=== PATIENT | female | born 1995 | race African-American/Black ===

== ENCOUNTER 2016-09-08 15:44 | Emergency (ER) | payer OTHER ==
[~2016-09-08] VITALS: Ht 170.2 cm; Wt 72.6 kg
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
[2016-09-08] MEDS ORDERED: FENTANYL PF 100 MCG/2 ML VIAL. IV ONE (16:15)
[2016-09-08] MEDS ORDERED: LIDOCAINE/EPI/TETRACAINE TOPICAL GEL 3 ML. TP ONE (16:15)
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
[2016-09-08 17:17] VITALS: BP 110/61
== END 2016-09-08 17:26 | disposition home or self-care (01) ==
LOC: ER 15:44
DX: S06.0X0A Concussion without loss of consciousness, initial encounter (principal); S01.01XA Laceration without foreign body of scalp, initial encounter; S50.02XA Contusion of left elbow, initial encounter; Y08.89XA Assault by other specified means, initial encounter; Y93.89 Activity, other specified; Y92.89 Other specified places as the place of occurrence of the external cause; Y99.8 Other external cause status
CPT/HCPCS: 70450; 73080; 96374; 99284; J3010

== ENCOUNTER 2017-03-25 09:57 | Observation (INO) | payer OTHER ==
[2017-03-25 13:35] LABS: BASO % 0 % (0-3); EOS % 2 % (0-3); HEMATOCRIT 28.3 % (36.0-47.0); HEMOGLOBIN 9.4 g/dL (12.0-15.5); LYMPH # 1.7 x10^3/uL (1.0-4.8); LYMPH % 17 % (24-48); MEAN CORPUSCULAR HEMOGLOBIN 26 pg (25-35); MEAN CORPUSCULAR HGB CONC 33 g/dL (31-37); MEAN CORPUSCULAR VOLUME 79 fL (79-100); MONO % 12 % (0-9); NEUT % 69 % (31-73); PLATELET COUNT 252 x10^3/uL (140-400); RED BLOOD COUNT 3.57 x10^6/uL (3.50-5.40); RED CELL DISTRIBUTION WIDTH 15.7 % (11.5-14.5); WHITE BLOOD COUNT 9.6 x10^3/uL (4.0-11.0)
--- NOTE | 2017-03-25 13:49 | RAD ---
Obstetrical ultrasound-limited, 03/25/2017: History: No care, unknown dates There is a single intrauterine fetus in a cephalic orientation. The biparietal diameter measures 8.2 cm compatible with a gestational age of 32-33 weeks. The femur length measurement suggests a gestational age of 31-32 weeks. The average gestational age based on all of the measurements is 32 weeks and 4 days yielding a sonographic EDC of 05/16/2017. Normal activity and heart motion were seen. The heart rate was 149 bpm. The weight was estimated at 4 pounds and 4 ounces +/- 10 ounces. A full survey was not attempted at this time. The placenta lies posteriorly extending into the fundal region. There is no evidence of a placenta previa. A normal amount of an amniotic fluid is present with the NICOLASA calculated at 15.7. The cervix was not clearly delineated due to the overlying head. It measures at least 3 cm in length. IMPRESSION: Single viable intrauterine fetus of 32-33 weeks gestational age as described above.
[2017-03-25 15:22] LABS: BARBITURATES NEG (NEG); BENZODIAZEPINES NEG (NEG); CANNABINOIDS NEG (NEG); COCAINE NEG (NEG); METHADONE NEG (NEG); OPIATES NEG (NEG); PHENCYCLIDINE NEG (NEG)
[2017-03-26 01:15] LABS: HIV ANTIBODY Non Reactive (Non Reactive)
[2017-03-26 06:16] LABS: RPR REFLEX Non Reactive (Non Reactive)
== END 2017-03-25 14:40 | disposition home or self-care (01) ==
LOC: 3 SO LND 09:57
PROVIDERS: ADMIT Obstetrics & Gynecology; ATTEND Obstetrics & Gynecology
DX: O62.9 Abnormality of forces of labor, unspecified (principal); Z3A.33 33 weeks gestation of pregnancy
CPT/HCPCS: 36415; 76805; 80307; 85025; 86593; 86701; 86702; 86703; 86762; 86850; 86900; 86901; 87340; 87341; 87535; G0378; G0379; G0479

== ENCOUNTER 2019-09-24 15:55 | Inpatient (IN) | payer MEDICARE, MEDICAID ==
[~2019-09-24] VITALS: Ht 170.2 cm; Wt 79.5 kg
[2019-09-24 17:41] LABS: BILIRUBIN,URINE NEGATIVE (NEG); CLARITY,URINE CLEAR; COLOR,URINE YELLOW; NITRITE,URINE NEGATIVE (NEG); PH,URINE 6.5 (<5.0-8.0); PROTEIN,URINE NEGATIVE (NEG-TRACE); UROBILINOGEN,URINE 0.2 mg/dL (0.2 mg/dL)
[2019-09-24 17:51] LABS: BACTERIA,URINE FEW /HPF (0-FEW); RBC,URINE 0 /HPF (0-2); SQUAMOUS EPITHELIAL CELL,UR MOD /LPF; WBC,URINE OCC /HPF (0-4)
[2019-09-24] MEDS ORDERED: cefTRIAXone IM 250 MG VIAL IM ONE (18:00)
[2019-09-24] MEDS ORDERED: AZITHROMYCIN 250 MG TABLET. PO ONE (18:00)
--- NOTE | 2019-09-24 18:25 | RAD ---
Complete pelvic ultrasound HISTORY: Right adnexal tenderness, right pelvic pain. FINDINGS: Anteverted uterus measures 7.8 x 5.4 x 4.2 cm. Endometrium thickness 0.8 cm. No uterine mass documented. There is mild volume of anechoic free fluid at the cul-de-sac and right adnexa. Left ovary measures 3.8 x 2.3 x 1.6 cm with 2 subcentimeter follicles, and normal intact left ovarian blood flow, and a left adnexal mass evident. There is no normal right ovary documented, at the right adnexa there is a 4 cm cystic structure sonographically fluid anterior of which is echogenic material without significant vascularity evident, some of this surrounds a somewhat anechoic tubular structure on image 14 raising the possibility of hydrosalpinx or pyosalpinx. IMPRESSION: No normal right ovary documented. There is a mild volume of free fluid at the cul-de-sac and right adnexa. No normal right ovary evident, there is a right adnexal poorly defined solid and cystic mass a portion of which has a tubular component which could be the patient's dilated fallopian tube. This could indicate salpingitis with hydrosalpinx/pyosalpinx, although replacement of the right ovary due to a solid and cystic ovarian neoplasm is also a consideration. Nonvisualization of the right ovary due to migration of the ovary from torsion is not excluded. No well-formed drainable abscess is documented. Uterus and left ovary are normal. Electronically signed by: Dimas Banks MD (09/24/2019 6:22 PM) [id number]
--- NOTE | 2019-09-24 18:39 | PHYS DOC ---
Past Medical History Past Medical History: Other Additional Past Medical Histor: eczema (ANGELINA LORENZO APRN) Past Surgical History: Other Additional Past Surgical Histo: hernia (ANGELINA LORENZO APRN) Smoking Status: Current Every Day Smoker Alcohol Use: None Drug Use: None (ANGELINA LORENZO APRN) Attending Signature I have participated in the care of this patient and I have reviewed and agree with all pertinent clinical information above including history, exam, and recommendations. (AMERICA KOHLI MD) Adult General Chief Complaint Chief Complaint: PELVIC PAIN HPI HPI Patient is a 23 year old AA female who presents to the emergency department with complaints of pelvic pain for the last week and irregular thick whitish- yellow vaginal discharge for the last 3 days. Patient denies any foul-smelling vaginal discharge. She denies any nausea, vomiting, diarrhea, abdominal pain, dysuria, hematuria, back pain, or increased urinary frequency. Patient states that her last menstrual cycle was sometime around 2 months ago. She states that she was but she had a miscarriage and cannot remember when that happened. Patient states she is not taking any control or using condoms to prevent . She currently rates her discomfort a 7 out of 10 on the pain scale, (ANGELINA LORENZO APRN) Review of Systems Review of Systems Complete ROS is negative unless otherwise noted in HPI. (ANGELINA LORENZO APRN) Current Medications Current Medications Current Medications Medications (Trade) Dose Ordered Sig/Faviola Start Time Stop Time Status Last Admin Dose Admin Azithromycin (Zithromax) 1,000 mg 1X ONCE 09/24/19 18:00 09/24/19 18:01 DC 09/24/19 18:29 1,000 MG Ceftriaxone Sodium (Rocephin Im) 250 mg 1X ONCE 09/24/19 18:00 09/24/19 18:01 DC 09/24/19 18:30 250 MG Gentamicin Sulfate 310 mg/ Sodium Chloride 107.75 ml @ 107.75 mls/hr Q24H 09/24/19 19:15 09/25/19 19:59 107.75 MLS/HR (AMERICA KOHLI MD) Allergies Allergies Allergies Coded Allergies Type Severity Reaction Last Updated Verified No Known Drug Allergies 04/09/14 No (AMERICA KOHLI MD) Physical Exam Physical Exam See Above Constitutional: Well developed, well nourished, no acute distress, non-toxic appearance. HENT: Normocephalic, atraumatic, bilateral external ears normal, nose normal. Eyes: PERRLA, EOMI, conjunctiva normal, no discharge. Neck: Normal range of motion, supple, no stridor. Cardiovascular: Heart rate regular rhythm Lungs & Thorax: Respirations even and unlabored, no retractions, no respiratory distress Pelvic Exam: Front Desk Receptionist present Deb RN Abdomen: Nontender, soft External Genitalia: Normal Skin Speculum: Normal vaginal mucosa, purulent cervical discharge, cervix friable Bimanual: R adnexal tenderness, CMT, positive chandelier's sign Skin: Warm, dry, no erythema, no rash. Back: No tenderness Extremities: No cyanosis, ROM intact, no edema. Neurologic: Alert and oriented X 3, no focal deficits noted. Psychologic: Affect normal, judgement normal, mood normal. (ANGELINA LORENZO APRN) Current Patient Data Vital Signs Vital Signs Date Time Temp Pulse Resp B/P (MAP) Pulse Ox O2 Delivery O2 Flow Rate FiO2 09/24/19 17:02 98.1 99 17 148/86 (106) 99 Room Air 98.1 (AMERICA KOHLI MD) Lab Values Laboratory Tests Test 09/24/19 15:10 09/24/19 16:04 09/24/19 16:07 09/24/19 19:00 Total Bilirubin 0.1 mg/dL (0.2-1.0) L Direct Bilirubin < 0.1 mg/dL (0.0-0.2) Aspartate Amino Transferase (AST) 25 U/L (15-37) Alanine Aminotransferase (ALT) 40 U/L (14-59) Alkaline Phosphatase 86 U/L (46-116) Total Protein 7.5 g/dL (6.4-8.2) Albumin 3.7 g/dL (3.4-5.0) Urine Collection Type Unknown Urine Color Yellow Urine Clarity Clear Urine pH 6.5 (<5.0-8.0) Urine Specific [place] >=1.030 (1.000-1.030) Urine Protein Negative mg/dL (NEG-TRACE) Urine Glucose (UA) Negative mg/dL (NEG) Urine Ketones (Stick) Trace mg/dL (NEG) Urine Blood Negative (NEG) Urine Nitrite Negative (NEG) Urine Bilirubin Negative (NEG) Urine Urobilinogen Dipstick 0.2 mg/dL (0.2 mg/dL) Urine Leukocyte Esterase Small (NEG) Urine RBC 0 /HPF (0-2) Urine WBC Occ /HPF (0-4) Urine Squamous Epithelial Cells Mod /LPF Urine Bacteria Few /HPF (0-FEW) Urine Mucus Marked /LPF POC Urine HCG, Qualitative Hcg negative (Negative) White Blood Count 6.9 x10^3/uL (4.0-11.0) Red Blood Count 4.83 x10^6/uL (3.50-5.40) Hemoglobin 13.7 g/dL (12.0-15.5) Hematocrit 40.4 % (36.0-47.0) Mean Corpuscular Volume 84 fL (79-100) Mean Corpuscular Hemoglobin 28 pg (25-35) Mean Corpuscular Hemoglobin Concent 34 g/dL (31-37) Red Cell Distribution Width 15.1 % (11.5-14.5) H Platelet Count 337 x10^3/uL (140-400) Neutrophils (%) (Auto) 54 % (31-73) Lymphocytes (%) (Auto) 37 % (24-48) Monocytes (%) (Auto) 8 % (0-9) Eosinophils (%) (Auto) 1 % (0-3) Basophils (%) (Auto) 1 % (0-3) Neutrophils # (Auto) 3.7 x10^3/uL (1.8-7.7) Lymphocytes # (Auto) 2.5 x10^3/uL (1.0-4.8) Monocytes # (Auto) 0.5 x10^3/uL (0.0-1.1) Eosinophils # (Auto) 0.1 x10^3/uL (0.0-0.7) Basophils # (Auto) 0.0 x10^3/uL (0.0-0.2) Sodium Level 141 mmol/L (136-145) Potassium Level 4.3 mmol/L (3.5-5.1) Chloride Level 103 mmol/L (98-107) Carbon Dioxide Level 27 mmol/L (21-32) Anion Gap 11 (6-14) Blood Urea Nitrogen 15 mg/dL (7-20) Creatinine 0.8 mg/dL (0.6-1.0) Estimated GFR (Cockcroft-Gault) 107.6 Glucose Level 79 mg/dL (70-99) Calcium Level 9.1 mg/dL (8.5-10.1) Laboratory Tests 09/24/19 19:00 Laboratory Tests 09/24/19 19:00 Microbiology 09/24/19 Wet Prep - Final, Complete (AMERICA KOHLI MD) EKG EKG [] (ANGELINA LORENZO APRN) Radiology/Procedures Radiology/Procedures PROCEDURE: PELVIS ULTRASOUND Complete pelvic ultrasound HISTORY: Right adnexal tenderness, right pelvic pain. FINDINGS: Anteverted uterus measures 7.8 x 5.4 x 4.2 cm. Endometrium thickness 0.8 cm. No uterine mass documented. There is mild volume of anechoic free fluid at the cul-de-sac and right adnexa. Left ovary measures 3.8 x 2.3 x 1.6 cm with 2 subcentimeter follicles, and normal intact left ovarian blood flow, and a left adnexal mass evident. There is no normal right ovary documented, at the right adnexa there is a 4 cm cystic structure sonographically fluid anterior of which is echogenic material without significant vascularity evident, some of this surrounds a somewhat anechoic tubular structure on image 14 raising the possibility of hydrosalpinx or pyosalpinx. IMPRESSION: No normal right ovary documented. There is a mild volume of free fluid at the cul-de-sac and right adnexa. No normal right ovary evident, there is a right adnexal poorly defined solid and cystic mass a portion of which has a tubular component which could be the patient's dilated fallopian tube. This could indicate salpingitis with hydrosalpinx/pyosalpinx, although replacement of the right ovary due to a solid and cystic ovarian neoplasm is also a consideration. Nonvisualization of the right ovary due to migration of the ovary from torsion is not excluded. No well-formed drainable abscess is documented. Uterus and left ovary are normal. Electronically signed by: Dimas Banks MD (09/24/2019 6:22 PM) [id number][] (ANGELINA LORENZO APRN) Course & Med Decision Making Course & Med Decision Making Pertinent Labs and Imaging studies reviewed. (See chart for details) [id number] with Dr. Pina who is the admitting physician, and care was assumed following discussion of patient. Will admit patient to the [facility] floor and give patient 2 g of ampicillin IV q6 hours and 5 mg/kg of gentamicin IV q 24 hours Patient's vital signs stable. Patient remains afebrile, appears nontoxic, respirations even and unlabored. Patient will be admitted to the [facility] floor. Patient's case and plan of care also discussed with Dr. Kohli [] (ANGELINA LORENZO APRN) Dragon Disclaimer Dragon Disclaimer This electronic medical record was generated, in whole or in part, using a voice recognition dictation system. (ANGELINA LORENZO APRN) Departure Departure Impression: Primary Impression: PID (acute pelvic inflammatory disease) Disposition: ADMITTED INPATIENT Admitting Physician: YASMIN Espinosa) (ANGELINA LORENZO APRN) Condition: STABLE Referrals: NO PCP (PCP) ANGELINA LORENZO APRN Sep 24, 2019 18:39 AMERICA KOHLI MD Sep 25, 2019 21:37
[2019-09-24 19:27] LABS: BASO % 1 % (0-3); EOS # 0.1 x10^3/uL (0.0-0.7); EOS % 1 % (0-3); HEMATOCRIT 40.4 % (36.0-47.0); HEMOGLOBIN 13.7 g/dL (12.0-15.5); LYMPH # 2.5 x10^3/uL (1.0-4.8); LYMPH % 37 % (24-48); MEAN CORPUSCULAR HEMOGLOBIN 28 pg (25-35); MEAN CORPUSCULAR HGB CONC 34 g/dL (31-37); MEAN CORPUSCULAR VOLUME 84 fL (79-100); MONO # 0.5 x10^3/uL (0.0-1.1); MONO % 8 % (0-9); NEUT # 3.7 x10^3/uL (1.8-7.7); NEUT % 54 % (31-73); PLATELET COUNT 337 x10^3/uL (140-400); RED BLOOD COUNT 4.83 x10^6/uL (3.50-5.40); RED CELL DISTRIBUTION WIDTH 15.1 % (11.5-14.5); WHITE BLOOD COUNT 6.9 x10^3/uL (4.0-11.0)
[2019-09-24 19:33] LABS: CALCIUM 9.1 mg/dL (8.5-10.1); CREATININE 0.8 mg/dL (0.6-1.0); GFR 107.6; POTASSIUM 4.3 mmol/L (3.5-5.1)
[2019-09-24] MEDS ORDERED: AMPICILLIN SODIUM 2 GM in IV NORMAL SALINE 100ML 100 ML IV ONE (20:00)
[2019-09-24] MEDS: GENTAMICIN SULFATE IV SCH (20:02)
[2019-09-24] MEDS: NORMAL SALINE IV SCH (20:02)
[2019-09-24 20:25] VITALS: BP 105/70
[2019-09-24] MEDS: IV RINGERS,LACTATED 1000ML 1,000 ML IV SCH (21:40)
[2019-09-24 23:08] LABS: ALBUMIN 3.7 g/dL (3.4-5.0); ALK PHOS 86 U/L (46-116); ALT (SGPT) 40 U/L (14-59); AST (SGOT) 25 U/L (15-37); DIRECT BILIRUBIN < 0.1 mg/dL (0.0-0.2); TOTAL BILIRUBIN 0.1 mg/dL (0.2-1.0); TOTAL PROTEIN 7.5 g/dL (6.4-8.2)
[2019-09-25] MEDS: AMPICILLIN SODIUM 2 GM in IV NORMAL SALINE 100ML 100 ML IV SCH ×4 (01:00→21:19)
[2019-09-25] MEDS ORDERED: IBUPROFEN 400 MG TABLET. PO ONE (08:34)
[2019-09-25] MEDS ORDERED: IBUPROFEN 400 MG TABLET. PO PRN (11:30)
[2019-09-25] MEDS ORDERED: ACETAMINOPHEN 500 MG TABLET PO PRN (11:30)
[2019-09-25 12:40] LABS: BASO % 0 % (0-3); EOS # 0.1 x10^3/uL (0.0-0.7); EOS % 1 % (0-3); HEMATOCRIT 37.8 % (36.0-47.0); HEMOGLOBIN 12.4 g/dL (12.0-15.5); LYMPH # 2.8 x10^3/uL (1.0-4.8); LYMPH % 41 % (24-48); MEAN CORPUSCULAR HEMOGLOBIN 28 pg (25-35); MEAN CORPUSCULAR HGB CONC 33 g/dL (31-37); MEAN CORPUSCULAR VOLUME 85 fL (79-100); MONO # 0.6 x10^3/uL (0.0-1.1); MONO % 8 % (0-9); NEUT # 3.3 x10^3/uL (1.8-7.7); NEUT % 49 % (31-73); PLATELET COUNT 304 x10^3/uL (140-400); RED BLOOD COUNT 4.45 x10^6/uL (3.50-5.40); RED CELL DISTRIBUTION WIDTH 15.4 % (11.5-14.5); WHITE BLOOD COUNT 6.8 x10^3/uL (4.0-11.0)
--- NOTE | 2019-09-25 14:47 | PDOC1 ---
History and Physical Date of Admission Date of Admission DATE: 09/25/19 TIME: 14:43 Identification/Chief Complaint Chief Complaint abd pain Source Source: Patient History of Present Illness History of Present Illness 23 y/o A1 presented to [facility] with c/o pelvic pain and vaginal discharge for past 2 days that continued to worsen. Pelvic sono indicated possible joseph. TOA. Pt. reports using Anu stone and h/o STD in past. Current Problem List Problem List Problems Medical Problems: (1) PID (acute pelvic inflammatory disease) Status: Acute Current Medications Current Medications Current Medications Ceftriaxone Sodium (Rocephin Im) 250 mg 1X ONCE IM Last administered on 09/24/19at 18:30; Start 09/24/19 at 18:00; Stop 09/24/19 at 18:01; Status DC Azithromycin (Zithromax) 1,000 mg 1X ONCE PO Last administered on 09/24/19at 18:29; Start 09/24/19 at 18:00; Stop 09/24/19 at 18:01; Status DC Ampicillin Sodium 2 gm/Sodium Chloride 100 ml @ 200 mls/hr 1X ONCE IV Last administered on 09/24/19at 21:29; Start 09/24/19 at 20:00; Stop 09/24/19 at 20:29; Status DC Gentamicin Sulfate 310 mg/ Sodium Chloride 107.75 ml @ 107.75 mls/hr Q24H IV Last administered on 09/24/19at 20:02; Start 09/24/19 at 19:15 Ringer's Solution 1,000 ml @ 100 mls/hr Q10H IV Last administered on 09/24/19at 21:40; Start 09/24/19 at 22:00 Ampicillin Sodium 2 gm/Sodium Chloride 100 ml @ 200 mls/hr Q6HRS IV ; Start 09/25/19 at 01:00 Ibuprofen (Motrin) 400 mg STK-MED ONCE PO ; Start 09/25/19 at 08:34; Stop 09/25/19 at 09:48; Status DC Ibuprofen (Motrin) 600 mg PRN Q6HRS PRN PO TEMP > 100.3; Start 09/25/19 at 11:30 Acetaminophen (Tylenol) 1,000 mg PRN Q4HRS PRN PO MILD PAIN / TEMP; Start 09/25/19 at 11:30 Allergies Allergies: Coded Allergies: No Known Drug Allergies (Unverified , 04/09/14) ROS General: YES: Night Sweats, Fatigue, Malaise; No: Chills, Appetite, Other PSYCHOLOGICAL ROS: YES: Anxiety; No: Behavioral Disorder, Concentration difficultie, Decreased libido, Depression, Disorientation, Hallucinations, Hostility, Irritablity, Memory difficulties, Mood Swings, Obsessive thoughts, Physical abuse, Sexual abuse, Sleep disturbances, Suicidal ideation, Other Eyes: No Blurry vision, No Decreased vision, No Double vision, No Dry eyes, No Excessive tearing, No Eye Pain, No Itchy Eyes, No Loss of vision, No Photophobia, No Scotomata, No Uses contacts, No Uses glasses, No Other HEENT: No: Heacaches, Visual Changes, Hearing change, Nasal congestion, Nasal discharge, Oral lesions, Sinus pain, Sore Throat, Epistaxis, Sneezing, Snoring, Tinnitus, Vertigo, Vocal changes, Other ALLERGY AND IMMUNOLOGY: No: Hives, Insect Bite Sensitivity, Itchy/Watery Eyes, Nasal Congestion, Post Nasal Drip, Seasonal Allergies, Other ENDOCRINE: No: Breast Changes, Galactorrhea, Hair Pattern Changes, Hot Flashes, Malaise/lethargy, Mood Swings, Palpitations, Polydipsia/polyuria, Skin Changes, Temperature Intolerance, Unexpected Weight Changes, Other Respiratory: No: Cough, Hemoptysis, Orthopnea, Pleuritic Pain, Shortness of breath, SOB with excertion, Sputum Changes, Stridor, Tachypnea, Wheezing, Other Cardiovascular: No Chest Pain, No Palpitations, No Orthopnea, No Paroxysmal Noc. Dyspnea, No Edema, No Lt Headedness, No Other Gastrointestinal: Yes Abdominal Pain Skin: No Dry Skin, No Eczema, No Hair Changes, No Lumps, No Mole Changes, No Mottling, No Nail Changes, No Pruritus, No Rash, No Skin Lesion Changes, No Other, No Acne Physical Exam General: Alert, Oriented X3, Cooperative HEENT: Atraumatic Lungs: Clear to auscultation Heart: S1S2 Breasts: Normal Abdomen: Normal bowel sounds, Soft, No masses, Other (mild diffuse tenderness) Vitals Vitals Vital Signs Date Time Temp Pulse Resp B/P (MAP) Pulse Ox O2 Delivery O2 Flow Rate FiO2 09/24/19 20:30 Room Air 09/24/19 20:25 97.4 83 16 105/70 (82) 99 97.4 Labs Labs Laboratory Tests Test 09/24/19 15:10 09/24/19 16:04 09/24/19 16:07 09/24/19 19:00 Total Bilirubin 0.1 mg/dL (0.2-1.0) Direct Bilirubin < 0.1 mg/dL (0.0-0.2) Aspartate Amino Transf (AST/SGOT) 25 U/L (15-37) Alanine Aminotransferase (ALT/SGPT) 40 U/L (14-59) Alkaline Phosphatase 86 U/L (46-116) Total Protein 7.5 g/dL (6.4-8.2) Albumin 3.7 g/dL (3.4-5.0) Urine Collection Type Unknown Urine Color Yellow Urine Clarity Clear Urine pH 6.5 (<5.0-8.0) Urine Specific [place] >=1.030 (1.000-1.030) Urine Protein Negative mg/dL (NEG-TRACE) Urine Glucose (UA) Negative mg/dL (NEG) Urine Ketones (Stick) Trace mg/dL (NEG) Urine Blood Negative (NEG) Urine Nitrite Negative (NEG) Urine Bilirubin Negative (NEG) Urine Urobilinogen Dipstick 0.2 mg/dL (0.2 mg/dL) Urine Leukocyte Esterase Small (NEG) Urine RBC 0 /HPF (0-2) Urine WBC Occ /HPF (0-4) Urine Squamous Epithelial Cells Mod /LPF Urine Bacteria Few /HPF (0-FEW) Urine Mucus Marked /LPF Bedside Urine HCG, Qualitative Hcg negative (Negative) White Blood Count 6.9 x10^3/uL (4.0-11.0) Red Blood Count 4.83 x10^6/uL (3.50-5.40) Hemoglobin 13.7 g/dL (12.0-15.5) Hematocrit 40.4 % (36.0-47.0) Mean Corpuscular Volume 84 fL (79-100) Mean Corpuscular Hemoglobin 28 pg (25-35) Mean Corpuscular Hemoglobin Concent 34 g/dL (31-37) Red Cell Distribution Width 15.1 % (11.5-14.5) Platelet Count 337 x10^3/uL (140-400) Neutrophils (%) (Auto) 54 % (31-73) Lymphocytes (%) (Auto) 37 % (24-48) Monocytes (%) (Auto) 8 % (0-9) Eosinophils (%) (Auto) 1 % (0-3) Basophils (%) (Auto) 1 % (0-3) Neutrophils # (Auto) 3.7 x10^3/uL (1.8-7.7) Lymphocytes # (Auto) 2.5 x10^3/uL (1.0-4.8) Monocytes # (Auto) 0.5 x10^3/uL (0.0-1.1) Eosinophils # (Auto) 0.1 x10^3/uL (0.0-0.7) Basophils # (Auto) 0.0 x10^3/uL (0.0-0.2) Sodium Level 141 mmol/L (136-145) Potassium Level 4.3 mmol/L (3.5-5.1) Chloride Level 103 mmol/L (98-107) Carbon Dioxide Level 27 mmol/L (21-32) Anion Gap 11 (6-14) Blood Urea Nitrogen 15 mg/dL (7-20) Creatinine 0.8 mg/dL (0.6-1.0) Estimated GFR (Cockcroft-Gault) 107.6 Glucose Level 79 mg/dL (70-99) Calcium Level 9.1 mg/dL (8.5-10.1) Test 09/25/19 05:00 White Blood Count 6.8 x10^3/uL (4.0-11.0) Red Blood Count 4.45 x10^6/uL (3.50-5.40) Hemoglobin 12.4 g/dL (12.0-15.5) Hematocrit 37.8 % (36.0-47.0) Mean Corpuscular Volume 85 fL (79-100) Mean Corpuscular Hemoglobin 28 pg (25-35) Mean Corpuscular Hemoglobin Concent 33 g/dL (31-37) Red Cell Distribution Width 15.4 % (11.5-14.5) Platelet Count 304 x10^3/uL (140-400) Neutrophils (%) (Auto) 49 % (31-73) Lymphocytes (%) (Auto) 41 % (24-48) Monocytes (%) (Auto) 8 % (0-9) Eosinophils (%) (Auto) 1 % (0-3) Basophils (%) (Auto) 0 % (0-3) Neutrophils # (Auto) 3.3 x10^3/uL (1.8-7.7) Lymphocytes # (Auto) 2.8 x10^3/uL (1.0-4.8) Monocytes # (Auto) 0.6 x10^3/uL (0.0-1.1) Eosinophils # (Auto) 0.1 x10^3/uL (0.0-0.7) Basophils # (Auto) 0.0 x10^3/uL (0.0-0.2) Laboratory Tests Test 09/24/19 15:10 09/24/19 16:04 09/24/19 16:07 09/24/19 19:00 Total Bilirubin 0.1 mg/dL (0.2-1.0) Direct Bilirubin < 0.1 mg/dL (0.0-0.2) Aspartate Amino Transf (AST/SGOT) 25 U/L (15-37) Alanine Aminotransferase (ALT/SGPT) 40 U/L (14-59) Alkaline Phosphatase 86 U/L (46-116) Total Protein 7.5 g/dL (6.4-8.2) Albumin 3.7 g/dL (3.4-5.0) Urine Collection Type Unknown Urine Color Yellow Urine Clarity Clear Urine pH 6.5 (<5.0-8.0) Urine Specific [place] >=1.030 (1.000-1.030) Urine Protein Negative mg/dL (NEG-TRACE) Urine Glucose (UA) Negative mg/dL (NEG) Urine Ketones (Stick) Trace mg/dL (NEG) Urine Blood Negative (NEG) Urine Nitrite Negative (NEG) Urine Bilirubin Negative (NEG) Urine Urobilinogen Dipstick 0.2 mg/dL (0.2 mg/dL) Urine Leukocyte Esterase Small (NEG) Urine RBC 0 /HPF (0-2) Urine WBC Occ /HPF (0-4) Urine Squamous Epithelial Cells Mod /LPF Urine Bacteria Few /HPF (0-FEW) Urine Mucus Marked /LPF Bedside Urine HCG, Qualitative Hcg negative (Negative) White Blood Count 6.9 x10^3/uL (4.0-11.0) Red Blood Count 4.83 x10^6/uL (3.50-5.40) Hemoglobin 13.7 g/dL (12.0-15.5) Hematocrit 40.4 % (36.0-47.0) Mean Corpuscular Volume 84 fL (79-100) Mean Corpuscular Hemoglobin 28 pg (25-35) Mean Corpuscular Hemoglobin Concent 34 g/dL (31-37) Red Cell Distribution Width 15.1 % (11.5-14.5) Platelet Count 337 x10^3/uL (140-400) Neutrophils (%) (Auto) 54 % (31-73) Lymphocytes (%) (Auto) 37 % (24-48) Monocytes (%) (Auto) 8 % (0-9) Eosinophils (%) (Auto) 1 % (0-3) Basophils (%) (Auto) 1 % (0-3) Neutrophils # (Auto) 3.7 x10^3/uL (1.8-7.7) Lymphocytes # (Auto) 2.5 x10^3/uL (1.0-4.8) Monocytes # (Auto) 0.5 x10^3/uL (0.0-1.1) Eosinophils # (Auto) 0.1 x10^3/uL (0.0-0.7) Basophils # (Auto) 0.0 x10^3/uL (0.0-0.2) Sodium Level 141 mmol/L (136-145) Potassium Level 4.3 mmol/L (3.5-5.1) Chloride Level 103 mmol/L (98-107) Carbon Dioxide Level 27 mmol/L (21-32) Anion Gap 11 (6-14) Blood Urea Nitrogen 15 mg/dL (7-20) Creatinine 0.8 mg/dL (0.6-1.0) Estimated GFR (Cockcroft-Gault) 107.6 Glucose Level 79 mg/dL (70-99) Calcium Level 9.1 mg/dL (8.5-10.1) Test 09/25/19 05:00 White Blood Count 6.8 x10^3/uL (4.0-11.0) Red Blood Count 4.45 x10^6/uL (3.50-5.40) Hemoglobin 12.4 g/dL (12.0-15.5) Hematocrit 37.8 % (36.0-47.0) Mean Corpuscular Volume 85 fL (79-100) Mean Corpuscular Hemoglobin 28 pg (25-35) Mean Corpuscular Hemoglobin Concent 33 g/dL (31-37) Red Cell Distribution Width 15.4 % (11.5-14.5) Platelet Count 304 x10^3/uL (140-400) Neutrophils (%) (Auto) 49 % (31-73) Lymphocytes (%) (Auto) 41 % (24-48) Monocytes (%) (Auto) 8 % (0-9) Eosinophils (%) (Auto) 1 % (0-3) Basophils (%) (Auto) 0 % (0-3) Neutrophils # (Auto) 3.3 x10^3/uL (1.8-7.7) Lymphocytes # (Auto) 2.8 x10^3/uL (1.0-4.8) Monocytes # (Auto) 0.6 x10^3/uL (0.0-1.1) Eosinophils # (Auto) 0.1 x10^3/uL (0.0-0.7) Basophils # (Auto) 0.0 x10^3/uL (0.0-0.2) VTE Prophylaxis Ordered VTE Prophylaxis Devices: No VTE Pharmacological Prophylaxi: No Assessment/Plan Assessment/Plan A: PID with possible TOA joseph. P: IV abx for next 48 hours, then plan LPSC joseph. salpingo-oophorectomy with possible open laparotomy on Friday. Will complete STD screening. ODIN MIGUEL Jr, MD Sep 25, 2019 14:47
[2019-09-25] MEDS: NICOTINE 7MG PATCH. TD SCH (15:08)
[2019-09-25 17:00] VITALS: BP 116/73
[2019-09-25] MEDS: IV RINGERS,LACTATED 1000ML 1,000 ML IV SCH ×2 (18:00→19:58)
[2019-09-25] MEDS: NORMAL SALINE IV SCH (19:59)
[2019-09-25] MEDS: GENTAMICIN SULFATE IV SCH (19:59)
[2019-09-25 23:45] VITALS: BP 98/54
[2019-09-26] MEDS: AMPICILLIN SODIUM 2 GM in IV NORMAL SALINE 100ML 100 ML IV SCH ×4 (02:44→21:33)
[2019-09-26 05:55] VITALS: BP 100/57
--- NOTE | 2019-09-26 09:51 | PDOC ---
SURGICAL PROGRESS NOTE Subjective Pt. feeling better with abd pain. Vital Signs Vital Signs Date Time Temp Pulse Resp B/P (MAP) Pulse Ox O2 Delivery O2 Flow Rate FiO2 09/26/19 05:55 98.2 75 14 100/57 (71) 97 Room Air 98.2 I&O Intake and Output 09/26/19 07:00 Intake Total 2800 ml Balance 2800 ml Intake Oral 1900 ml Other 900 ml # Voids 6 PATIENT HAS A GREEN: No General: Alert, Oriented X3, Cooperative HEENT: Atraumatic Lungs: Clear to auscultation Heart: Regular rate Abdomen: Normal bowel sounds, Soft, No masses Psych/Mental Status: Mental status NL Labs Laboratory Tests Test 09/24/19 15:10 09/24/19 16:04 09/24/19 16:07 09/24/19 19:00 Total Bilirubin 0.1 mg/dL (0.2-1.0) Direct Bilirubin < 0.1 mg/dL (0.0-0.2) Aspartate Amino Transf (AST/SGOT) 25 U/L (15-37) Alanine Aminotransferase (ALT/SGPT) 40 U/L (14-59) Alkaline Phosphatase 86 U/L (46-116) Total Protein 7.5 g/dL (6.4-8.2) Albumin 3.7 g/dL (3.4-5.0) Urine Collection Type Unknown Urine Color Yellow Urine Clarity Clear Urine pH 6.5 (<5.0-8.0) Urine Specific [place] >=1.030 (1.000-1.030) Urine Protein Negative mg/dL (NEG-TRACE) Urine Glucose (UA) Negative mg/dL (NEG) Urine Ketones (Stick) Trace mg/dL (NEG) Urine Blood Negative (NEG) Urine Nitrite Negative (NEG) Urine Bilirubin Negative (NEG) Urine Urobilinogen Dipstick 0.2 mg/dL (0.2 mg/dL) Urine Leukocyte Esterase Small (NEG) Urine RBC 0 /HPF (0-2) Urine WBC Occ /HPF (0-4) Urine Squamous Epithelial Cells Mod /LPF Urine Bacteria Few /HPF (0-FEW) Urine Mucus Marked /LPF Bedside Urine HCG, Qualitative Hcg negative (Negative) White Blood Count 6.9 x10^3/uL (4.0-11.0) Red Blood Count 4.83 x10^6/uL (3.50-5.40) Hemoglobin 13.7 g/dL (12.0-15.5) Hematocrit 40.4 % (36.0-47.0) Mean Corpuscular Volume 84 fL (79-100) Mean Corpuscular Hemoglobin 28 pg (25-35) Mean Corpuscular Hemoglobin Concent 34 g/dL (31-37) Red Cell Distribution Width 15.1 % (11.5-14.5) Platelet Count 337 x10^3/uL (140-400) Neutrophils (%) (Auto) 54 % (31-73) Lymphocytes (%) (Auto) 37 % (24-48) Monocytes (%) (Auto) 8 % (0-9) Eosinophils (%) (Auto) 1 % (0-3) Basophils (%) (Auto) 1 % (0-3) Neutrophils # (Auto) 3.7 x10^3/uL (1.8-7.7) Lymphocytes # (Auto) 2.5 x10^3/uL (1.0-4.8) Monocytes # (Auto) 0.5 x10^3/uL (0.0-1.1) Eosinophils # (Auto) 0.1 x10^3/uL (0.0-0.7) Basophils # (Auto) 0.0 x10^3/uL (0.0-0.2) Sodium Level 141 mmol/L (136-145) Potassium Level 4.3 mmol/L (3.5-5.1) Chloride Level 103 mmol/L (98-107) Carbon Dioxide Level 27 mmol/L (21-32) Anion Gap 11 (6-14) Blood Urea Nitrogen 15 mg/dL (7-20) Creatinine 0.8 mg/dL (0.6-1.0) Estimated GFR (Cockcroft-Gault) 107.6 Glucose Level 79 mg/dL (70-99) Calcium Level 9.1 mg/dL (8.5-10.1) Test 09/25/19 05:00 09/25/19 15:20 White Blood Count 6.8 x10^3/uL (4.0-11.0) Red Blood Count 4.45 x10^6/uL (3.50-5.40) Hemoglobin 12.4 g/dL (12.0-15.5) Hematocrit 37.8 % (36.0-47.0) Mean Corpuscular Volume 85 fL (79-100) Mean Corpuscular Hemoglobin 28 pg (25-35) Mean Corpuscular Hemoglobin Concent 33 g/dL (31-37) Red Cell Distribution Width 15.4 % (11.5-14.5) Platelet Count 304 x10^3/uL (140-400) Neutrophils (%) (Auto) 49 % (31-73) Lymphocytes (%) (Auto) 41 % (24-48) Monocytes (%) (Auto) 8 % (0-9) Eosinophils (%) (Auto) 1 % (0-3) Basophils (%) (Auto) 0 % (0-3) Neutrophils # (Auto) 3.3 x10^3/uL (1.8-7.7) Lymphocytes # (Auto) 2.8 x10^3/uL (1.0-4.8) Monocytes # (Auto) 0.6 x10^3/uL (0.0-1.1) Eosinophils # (Auto) 0.1 x10^3/uL (0.0-0.7) Basophils # (Auto) 0.0 x10^3/uL (0.0-0.2) Treponema pallidum Antibody Nonreactive (Nonreactive) Laboratory Tests Test 09/25/19 15:20 Treponema pallidum Antibody Nonreactive (Nonreactive) Problem List Problems Medical Problems: (1) PID (acute pelvic inflammatory disease) Status: Acute Assessment/Plan A: PID Jacinto. TOA P: Continue IV abx. Plan for surgery tomorrow in form of LPSC jacinto. Salpingo- oophorectomy. ODIN MIGUEL Jr, MD Sep 26, 2019 09:51
[2019-09-26] MEDS: IV RINGERS,LACTATED 1000ML 1,000 ML IV SCH ×3 (10:13→21:58)
[2019-09-26] MEDS: NICOTINE 7MG PATCH. TD SCH (10:14)
[2019-09-26] MEDS: IBUPROFEN 400 MG TABLET. PO PRN (10:15)
[2019-09-26 11:10] VITALS: BP 102/60
[2019-09-26 18:20] VITALS: BP 124/89
[2019-09-26] MEDS: GENTAMICIN SULFATE IV SCH (22:07)
[2019-09-26] MEDS: NORMAL SALINE IV SCH (22:07)
[2019-09-26 22:23] VITALS: BP 117/65
[2019-09-27] VITALS (9 sets, daily range): BP systolic 90–114; BP diastolic 56–68
[2019-09-27] MEDS: AMPICILLIN SODIUM 2 GM in IV NORMAL SALINE 100ML 100 ML IV SCH ×5 (03:23→23:18)
[2019-09-27] MEDS: IV RINGERS,LACTATED 1000ML 1,000 ML IV SCH (05:43)
[2019-09-27] MEDS ORDERED: IV RINGERS,LACTATED 1000ML 1,000 ML IV SCH (07:44)
[2019-09-27] MEDS ORDERED: MORPHINE SULFATE 2 MG/ML VIAL. IV PRN (07:45)
[2019-09-27] MEDS ORDERED: HYDROmorphone 2 MG/ML VIAL IV PRN (07:45)
[2019-09-27] MEDS ORDERED: ONDANSETRON PF 4 MG/2 ML VIAL. IV PRN (07:45)
[2019-09-27] MEDS ORDERED: PROCHLORPERAZINE 10 MG/2 ML VIAL. IV PRN (07:45)
[2019-09-27] MEDS ORDERED: fentaNYL PF VIAL 100 MCG/2 ML VIAL IV PRN (07:45)
--- NOTE | 2019-09-27 07:45 | NUR ---
pt refuses to sign operative permit till speaks with Dr Pina further. States wants other children. Has nose stud will not remove also lip refuses to remove,
[2019-09-27] MEDS ORDERED: ONDANSETRON PF 4 MG/2 ML VIAL. ONE (08:38)
[2019-09-27] MEDS ORDERED: ROCURONIUM 50 MG/5 ML VIAL. ONE (08:38)
[2019-09-27] MEDS ORDERED: DEXAMETHASONE SOD PHOS 4 MG/ML VIAL ONE (08:38)
[2019-09-27] MEDS ORDERED: FAMOTIDINE 20 MG/2 ML VIAL ONE (08:38)
[2019-09-27] MEDS ORDERED: PROPOFOL 20 ML IV ONE (08:38)
[2019-09-27] MEDS ORDERED: LIDOCAINE 2% PF 5 ML VIAL. ONE (08:38)
[2019-09-27] MEDS ORDERED: fentaNYL PF VIAL 100 MCG/2 ML VIAL ONE (08:39)
[2019-09-27] MEDS ORDERED: MIDAZOLAM HCL/PF 2 MG/2 ML VIAL. ONE (08:39)
[2019-09-27] MEDS ORDERED: KETOROLAC 30 MG/ML VIAL. ONE (08:41)
[2019-09-27] MEDS ORDERED: BUPIVACAINE-EPI 0.25%-1:200000 MPF 30 ML VIAL. ONE (08:49)
[2019-09-27] MEDS ORDERED: SURGICEL HEMOSTAT 4X8 EACH. ONE (08:49)
[2019-09-27] MEDS ORDERED: PHENYLEPHRINE in 0.9% NACL PF 1 MG/10 ML SYRINGE. IV ONE (09:35)
[2019-09-27] MEDS ORDERED: SEVOFLURANE 61 TO 120 MINUTES. IH ONE (10:02)
[2019-09-27] MEDS ORDERED: GLYCOPYRROLATE 1 MG/5 ML VIAL. ONE (10:02)
[2019-09-27] MEDS ORDERED: NEOSTIGMINE METHYLSULFATE 5 MG/5 ML SYRINGE. ONE (10:02)
--- NOTE | 2019-09-27 10:26 | PDOC ---
BRIEF OPERATIVE NOTE Date: Sep 27, 2019 Pre-Op Diagnosis 1. PID 2. Jacinto. TOA Post-Op Diagnosis 1. PID 2. Right TOA 3. Jacinto. Salpingitis Procedure Performed 1. PSYCHIATRIC RSO and Left Salpingectomy Surgeon Dr. Pina Anesthesia Type: General Blood Loss 5 ml Specimens Obtained Jacinto. fallopian tubes and ROV Findings PID involving jacinto. fallopian tubes and ROV; GIL nml Complications none Operative Note see dictation ODIN PINA Jr, MD Sep 27, 2019 10:25
[2019-09-27] MEDS: fentaNYL PF VIAL 100 MCG/2 ML VIAL IV PRN ×2 (10:42→10:52)
--- NOTE | 2019-09-27 10:48 | OP ---
DATE OF SURGERY: PREOPERATIVE DIAGNOSES: 1. Pelvic inflammatory disease. 2. Bilateral tubo-ovarian abscess. POSTOPERATIVE DIAGNOSES: 1. Pelvic inflammatory disease. 2. Right tubo-ovarian abscess. 3. Bilateral salpingitis. PROCEDURES: Laparoscopic RSO and left salpingectomy. SURGEON: Mohsen Pina MD ANESTHESIA: GETA. ESTIMATED BLOOD LOSS: 5 mL. COMPLICATIONS: None. FINDINGS: Bilateral fallopian tubes involved with PID, right ovarian abscess, left ovary appeared normal. There were multiple pelvic adhesions to the sidewall and some to the bowel. SUMMARY: A 23-year-old who presented with abdominal pain that continued to worsen. She was found to have on sonogram bilateral tubo-ovarian abscess. She was placed on IV antibiotics for 2 days. The third day, she did have surgery for a laparoscopic bilateral tubo-ovarian abscess removal. She was counseled on the risks, benefits and expectations and voiced clear understanding to proceed. The patient was also counseled on risk for infertility, risk for hysterectomy due to the severity of the pelvic inflammatory disease and voiced clear understanding to proceed. DESCRIPTION OF PROCEDURE: The patient was taken to surgery suite and placed in dorsal lithotomy position. She was prepped with Betadine solution for vaginal prep and ChloraPrep for abdominal prep. After adequate anesthesia, the patient was draped in normal fashion. Comanche speculum was placed. Anterior lip of the cervix grasped with single tooth tenaculum. The uterine acorn manipulator was then placed. Comanche speculum was removed. Attention was now placed on abdomen. Small transverse skin incision was made just below the umbilicus with a scalpel. Veress needle was then placed through the infraumbilical incision site. The abdomen was allowed to insufflate up to 1-1/2 liters CO2 gas. The Veress needle was then removed, 5 mm trocar was placed. Scope was positioned. Uterus was normal size. There were multiple abdominal wall and pelvic sidewall adhesions. Two additional incisions made in left lower quadrant, which a 5 mm trocar and an 11 mm trocar was placed. A 0.25% Marcaine with epinephrine was injected prior to each incision. With aid of graspers, some of the adhesions were bluntly dissected. The fallopian tubes bilaterally were very enlarged and inflammatory with purulent material, but right ovary appeared abscess formation surrounding it as well. The left ovary appeared normal. With the aid of the EnSeal device, the right infundibulopelvic ligament was coagulated and dissected. Right utero-ovarian pedicle was coagulated and dissected. The remainder of the right fallopian tube and ovary was removed from the pelvic sidewall using dissection with the EnSeal device. The left fallopian tube was then dissected away from the adnexa using the EnSeal device. The remainder adhesions were removed bluntly. Suction irrigation was copiously used throughout the pelvis. The left ovary appeared normal. The left fallopian tube, right fallopian tube and right ovary were removed via the Endobag. The pedicles were all hemostatic. The trocars were removed under direct visualization. The abdomen was allowed to deflate as much as possible along with mechanical manipulation. The 11 mm trocar port site was closed at the fascial layer using 2-0 Vicryl suture in [id number] manner. The skin incisions were closed at the skin level using 4-0 Vicryl suture in a subcuticular manner. Uterine acorn manipulator and single tooth tenaculum were removed. The patient tolerated the procedure well and was taken to recovery room in stable condition. Sponge and needle count correct x 3. MOHSEN PINA MD DR: MANUEL/jorge JOB#: [id number] / [id number]
[2019-09-27] MEDS ORDERED: GENTAMICIN PER PHARMACY. MC PRN (11:15)
[2019-09-27 12:07] LABS: CREATININE 0.8 mg/dL (0.6-1.0); GFR 107.6
[2019-09-27] MEDS ORDERED: oxyCODONE/APAP 5/325 1 TAB TABLET PO PRN (12:45)
[2019-09-27] MEDS ORDERED: KETOROLAC 30 MG/ML VIAL. IVP PRN (12:45)
--- NOTE | 2019-09-27 13:13 | NUR ---
Pharmacy Aminoglycoside Dosing Note S: Consulted to monitor and dose Gentamicin started 09/24/19 O:MARCO DAY is a 23 year old F with PID Height: 5 feet, 7 inches Weight: 79.5 kg Ragan Weight: 61.60 Adjusted Weight: 68.76 Dosing Weight:Ragan Other Antibiotics: Ampicillin LABS: BUN: 15 (09/23) SCr:0.8 CrCl: > 100 WBC: 6.8 (09/24) Platelet: 304 Tmax (past 24 hours): 94.8 I/O: 2550/6 voids Microbiology: Vaginal wet prep NGTD Drug Levels: None drawn at this time; Treatment indication PID Last dose given 09/26/19 at 2207 A: Based on patient's SCr of 0.8, indication for gentamicin and patient's clinical progress will continue: P: 1. Continue Gentamicin 5 mg/kg (based on IBW) IV q24h 2. Follow up random levels on 09/29/19 at 0600 if gentamicin continued 3. Pharmacy will continue to monitor, follow and adjust therapy as needed. SOTO JOSE [facility], 09/27/19 [id number]
[2019-09-27] MEDS: oxyCODONE/APAP 5/325 1 TAB TABLET PO PRN ×2 (18:15→23:19)
[2019-09-27] MEDS: GENTAMICIN SULFATE IV SCH (18:41)
[2019-09-27] MEDS: NORMAL SALINE IV SCH (18:41)
[2019-09-28] MEDS: AMPICILLIN SODIUM 2 GM in IV NORMAL SALINE 100ML 100 ML IV SCH (05:17)
[2019-09-28] MEDS: oxyCODONE/APAP 5/325 1 TAB TABLET PO PRN (05:22)
[2019-09-28 05:29] VITALS: BP 108/64
[2019-09-28 05:32] LABS: CREATININE 0.7 mg/dL (0.6-1.0); GFR 125.5
--- NOTE | 2019-09-28 08:30 | PDOC ---
SURGICAL PROGRESS NOTE Subjective Pt. feeling well. Pain controlled. Vital Signs Vital Signs Date Time Temp Pulse Resp B/P (MAP) Pulse Ox O2 Delivery O2 Flow Rate FiO2 09/28/19 06:43 96 Room Air 09/28/19 05:29 98.2 87 16 108/64 (79) 98.2 09/27/19 23:19 8.0 I&O Intake and Output 09/28/19 07:00 Intake Total 1200 ml Output Total 510 ml Balance 690 ml Intake Oral 0 ml IV Total 1200 ml Output Urine Total 500 ml Estimated Blood Loss 10 ml # Voids 1 General: Alert, Oriented X3, Cooperative HEENT: Atraumatic Lungs: Clear to auscultation Heart: Regular rate Abdomen: Normal bowel sounds, Soft, No tenderness, No masses Psych/Mental Status: Mental status NL Labs Laboratory Tests Test 09/27/19 11:50 09/28/19 05:00 Creatinine 0.8 mg/dL (0.6-1.0) 0.7 mg/dL (0.6-1.0) Estimated GFR (Cockcroft-Gault) 107.6 125.5 Laboratory Tests Test 09/27/19 11:50 09/28/19 05:00 Creatinine 0.8 mg/dL (0.6-1.0) 0.7 mg/dL (0.6-1.0) Estimated GFR (Cockcroft-Gault) 107.6 125.5 Problem List Problems Medical Problems: (1) PID (acute pelvic inflammatory disease) Status: Acute Assessment/Plan A: POD#1 s/p LPSC RSO and Left Salpingectomy P: D/c home. ODIN MIGUEL Jr, MD Sep 28, 2019 08:30
[2019-09-28] MEDS ORDERED: METR500T PO (08:36)
[2019-09-28] MEDS ORDERED: CIPR500S2 PO (08:36)
[2019-09-28] MEDS ORDERED: IBUP-1027 PO (08:36)
[2019-09-28] MEDS ORDERED: OXYC1TAB15 PO (08:36)
--- NOTE | 2019-09-28 08:36 | DISCH ---
DISCHARGE INSTRUCTIONS Condition on Discharge Condition on Discharge: Stable Activity After Discharge Activity Instructions for Disc: Activity as tolerated Lifting Instructions after Dis: No heavy lifting Driving Instructions after Dis: Do not drive today Diet after Discharge Diet after Discharge: Regular Contacting the DRSandi after DC Call your doctor for: Concerns you may have Follow-Up Follow up with: Dr. Pina in 1 week. ODIN PINA Jr, MD Sep 28, 2019 08:36
[2019-09-28] MEDS: IBUPROFEN 400 MG TABLET. PO PRN (08:43)
[2019-09-28 09:15] VITALS: BP 115/78
--- NOTE | 2019-09-28 09:39 | NUR ---
Discharge Discharge and incisional instructions given to patient at this time, no questions or concerns noted. To follow up with Dr Pina in 1 week. Patient ambulated off unit with all her belongings
[2019-09-28 14:10] LABS: GC PROBE Negative (Negative)
--- NOTE | 2019-09-28 18:06 | PATHOLOGY ---
[facility] Accession Number: [id number] . 01 Material submitted: . PART A: ovary - RIGHT TUBE AND OVARY. Modifiers: right PART B: fallopian tube - LEFT TUBE. Modifiers: left . 01 Clinical history: . pelvic pain . 02 Diagnosis: A. 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 - Tubo-ovarian adhesions. - Hemorrhagic corpus luteum cyst and cystic follicles of ovary. . B. 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 - Serosal adhesions. . (JPM:mml; 09/28/2019) [facility] 09/28/2019 1704 Local . 02 Comment: Sections of the right and left fallopian tubes appear similar and show marked active chronic inflammation. There are focal clusters of histiocytes within the inflammatory infiltrate having a vaguely granulomatous appearance. Properly-controlled stains for acid-fast bacilli and fungi are obtained and yield the following results: . AFB stain (A3): Negative for acid fast bacilli GMS stain (A3): Negative for yeast/fungi AFB stain (B1): Negative for acid fast bacilli GMS stain (B1): Negative for yeast/fungi . (JPM:mml; 09/28/2019) . 02 Electronically signed: . Hector Hill MD, Pathologist NPI- [id number] . 01 Gross description: . A. The specimen is received in formalin, labeled "Leilani Warner, right tube and ovary" and consists of a pink-purple fimbriated fallopian tube segment with adhesions measuring approximately 8.5 cm in length and up to 1.0 cm in diameter which is attached to a disrupted 10 g ovary measuring 3.9 x 2.8 x 2.0 cm. Protruding from the disruption is orange friable material. Sectioning the ovary reveals multiple uniloculated cystic structures measuring up to 0.6 cm which contain clear fluid. The fallopian tube reveals a pinpoint to dilated central lumen. [employer] sections are submitted in A1-A3. . B. The specimen is received in formalin, labeled "Leilani Warner, left tube" and consists of a pink-shetty fimbriated fallopian tube segment measuring approximately 6.5 cm in length and up to 1.3 cm in diameter. Sectioning reveals a central dilated lumen with no gross lesions. [employer] Consult[employer] sections are submitted in B1-B2. (SDY; 09/27/2019) SYU/SYU 09/27/2019 1704 Local . 02 Pathologist provided ICD-10: N70.11, N73.6, N83.12 . 02 CPT . 534658, [id number], 318509, [id number], [id number], [id number] Specimen Comment: A courtesy copy of this report has been sent to [phone] Specimen Comment: Report sent to Performed at: 01 [facility] [address], [place] [id number] MD Dale Alexandre MD Phone: [phone] Performed at: 02 [facility] [address] [place], [place] [id number] MD Hector Hill MD Phone: [phone]
[2019-09-29] MEDS ORDERED: GENTAMICIN RANDOM LEVEL. MC ONE (06:00)
== END 2019-09-28 11:11 | disposition home or self-care (01) | DRG 743 ==
LOC: ER 15:55 → 3 NORTH 19:28
PROVIDERS: ADMIT Obstetrics & Gynecology; ATTEND Obstetrics & Gynecology
PROC: 0UT74ZZ Resection of Bilateral Fallopian Tubes, Percutaneous Endoscopic Approach (ICD-10-PCS; 2019-09-27)
PROC: 0UT04ZZ Resection of Right Ovary, Percutaneous Endoscopic Approach (ICD-10-PCS; principal; 2019-09-27 09:00)
DX: N70.93 Salpingitis and oophoritis, unspecified (principal); N73.6 Female pelvic peritoneal adhesions (postinfective); N73.0 Acute parametritis and pelvic cellulitis; Z87.891 Personal history of nicotine dependence
CPT/HCPCS: 36415; 76856; 80048; 80076; 81001; 81025; 82565; 85025; 86592; 86695; 86703; 87086; 87186; 87491; 87591; 96372; A7015; J0290; J0696; J0780; J1100; J1580; J1885; J2001; J2250; J2370; J2405; J2704; J2710; J3010; J3490; J7030; J7120; Q0111; 99285-25; G0378

== ENCOUNTER 2019-10-01 23:26 | Emergency (ER) | payer MEDICARE, MEDICAID ==
[~2019-10-01] VITALS: Ht 170.2 cm; Wt 75.0 kg
[~2019-10-01 23:26] MED LIST: CIPR500S2 PO; IBUP-1027 PO; METR500T PO; OXYC1TAB15 PO
[2019-10-01 23:31] VITALS: BP 129/79
--- NOTE | 2019-10-01 23:59 | PHYS DOC ---
Past Medical History Past Medical History: Ovarian Cyst, P.I.D., Other Additional Past Medical Histor: eczema (MIRNA WHITT APRN) Past Surgical History: Other Additional Past Surgical Histo: hernia, PARTIAL HYSTERECTOMY (MIRNA WHITT APRN) Smoking Status: Current Every Day Smoker Alcohol Use: None Drug Use: None (MIRNA WHITT APRN) Attending Signature I have participated in the care of this patient and I have reviewed and agree with all pertinent clinical information above including history, exam, and recommendations. (AMERICA KOHLI MD) Adult General Chief Complaint Chief Complaint: PELVIC PAIN HPI HPI Patient is a 23 year old female who presents with abdominal pain. Patient states that she had surgery recently, has continued to have some abdominal pain worsening over the last couple days following her surgery. States she just feels uncomfortable. States she had a started her prescriptions today including her pain medication. States she had taken 2 doses of her pain medication which she reports "messed with my head so I know they are working but I can still feel pain in my stomach" states she had taken these approximately 1 hour prior to coming in to the [facility]. States normal bowel movements. Last bowel movement this morning states no change in urination, has had a small amount of blood. She reports she has very little bleeding throughout the day, has only had 3 total pads in the last 24 hours and they were only small amount of blood, none of them soaking. States this has been the same for the last several days. Denies any fevers. Denies any cough. Patient states she had thought about calling her [employer] office, but did not. She does states she has been trying to rest at home and has been less active than normal Review of records, patient had bilateral tubal ovarian abscess with chlamydia which led to laparoscopic cystectomy and a bilateral salpingo-oophorectomy on 09/26 with resulting to the hospital stay. Was discharged with antibiotics, pain medication, with plan to follow-up in 1 week. (MIRNA WHITT APRN) Review of Systems Review of Systems Constitutional: Denies fever or chills [] Respiratory: Denies cough or shortness of breath [] Cardiovascular: No additional information not addressed in HPI [] GI: Denies nausea, vomiting, bloody stools or diarrhea does complain of some generalized abdominal bloating and discomfort [] : Denies dysuria denies hematuria, but does report she has had some small amount of blood from her vaginal canal on wiping when she urinates [] Musculoskeletal: Denies back pain or joint pain [] Integument: Denies rash or skin lesions, complains of some tenderness near incision sites [] All other systems were reviewed and found to be within normal limits, except as documented in this note. (MIRNA WHITT APRN) Allergies Allergies Allergies Coded Allergies Type Severity Reaction Last Updated Verified No Known Drug Allergies 04/09/14 No (AMERICA KOHLI MD) Physical Exam Physical Exam Constitutional: Well developed, well nourished, no acute distress, non-toxic appearance. strong odor marijuana[] HENT: Normocephalic, atraumatic, oropharynx moist, no oral exudates, nose normal. [] Eyes: PERRLA, EOMI, conjunctiva normal, no discharge. eyes bloodshot.[] Neck: Normal range of motion, no tenderness, supple, no stridor. [] Cardiovascular:Heart rate regular rhythm, no murmur [] Lungs & Thorax: Bilateral breath sounds clear to auscultation [] Abdomen: Bowel sounds normal, soft, no focal tenderness, no masses, no pulsatile masses. [] Skin: Warm, dry, no erythema, no rash. Suprapubic incision site well approximated, no erythema, no tenderness or purulence. Upper abdomen incision site well approximated, no erythema, no tenderness or purulence. Umbilical incision site with small little redness, no purulence, no bleeding, no discharge. [] Back: No tenderness, no CVA tenderness. [] Extremities: No tenderness, no cyanosis, no clubbing, ROM intact, no edema. [] Neurologic: Alert and oriented X 3, normal motor function, normal sensory function, no focal deficits noted. [] (MIRNA WHITT APRN) Current Patient Data Vital Signs Vital Signs Date Time Temp Pulse Resp B/P (MAP) Pulse Ox O2 Delivery O2 Flow Rate FiO2 10/01/19 23:31 98.4 133 20 129/79 (96) 99 Room Air 98.4 (AMERICA KOHLI MD) EKG EKG [] (MIRNA WHITT APRN) Radiology/Procedures Radiology/Procedures [] (MIRNA WHITT APRN) Course & Med Decision Making Course & Med Decision Making Pertinent Labs and Imaging studies reviewed. (See chart for details) [Discussed findings with discomfort likely related to post surgical discomfort and delay in patient starting her pain medications following discharge. Patient is asking how often she can take her pain medication, advised patient to read her prescription as this will tell her how often she can take it. Without her knowing what the medication is, it is hard to tell her how often she can take the medication. patient in agreement with this to read the bottle and take it as prescribed. Patient reports she will call [employer] and make an appointment for follow-up scheduled day. With minimal vaginal bleeding noted, no focal abdominal discomfort, no fever, patient having bowel movements regularly, no nausea or vomiting, believe patient is safe for discharge at this time with close follow-up. Patient agreeable to take medications as prescribed and to make her follow-up without further questions or concerns] (MIRNA WHITT APRN) Dragon Disclaimer Dragon Disclaimer This electronic medical record was generated, in whole or in part, using a voice recognition dictation system. (MIRNA WHITT APRN) Departure Departure Impression: Primary Impression: Postoperative pain Disposition: HOME, SELF-CARE Condition: STABLE Referrals: NO PCP (PCP) Patient Instructions: Abdominal Pain Additional Instructions: As we discussed, try to get into see Dr. Pina next week. Continue to take your antibiotics as prescribed. You may take the pain medication that they gave you according to the prescription directions. Continue to rest. MIRNA WHITT APRN Oct 01, 2019 23:59 AMERICA KOHLI MD Oct 02, 2019 05:54
== END 2019-10-02 00:10 | disposition home or self-care (01) ==
LOC: ER 23:26
DX: G89.18 Other acute postprocedural pain (principal); R10.84 Generalized abdominal pain; R14.0 Abdominal distension (gaseous); R31.9 Hematuria, unspecified; Z90.722 Acquired absence of ovaries, bilateral; Z90.6 Acquired absence of other parts of urinary tract; Z90.711 Acquired absence of uterus with remaining cervical stump; F17.200 Nicotine dependence, unspecified, uncomplicated
CPT/HCPCS: 99281